=== PATIENT | male | born 1990 | race African-American/Black ===

== ENCOUNTER 2018-01-26 22:46 | Emergency (ER) | payer SELFPAY ==
[~2018-01-26] VITALS: Ht 175.3 cm; Wt 79.0 kg
[2018-01-27 00:28] VITALS: BP 121/85
== END 2018-01-27 00:33 | disposition home or self-care (01) ==
LOC: ER 22:46
DX: H83.2X1 Labyrinthine dysfunction, right ear (principal)
CPT/HCPCS: 99283